=== PATIENT | male | born 1980 | race Caucasian/White ===

== ENCOUNTER 2022-10-28 09:44 | Outpatient (CLI) | payer BC, SELFPAY ==
[2022-10-28 13:42] LABS: Cholesterol* 219 mg/dL (90-199); HDL Cholesterol* 36 mg/dL (>=40); LDL Cholesterol Calculated 156 mg/dL (<100); Triglycerides* 137 mg/dL (40-149)
== END 2022-10-28 09:45 | disposition home or self-care (01) ==
PROVIDERS: PCP Family Medicine; Visit Provider Family Medicine
DX: E78.5 Hyperlipidemia, unspecified (principal)
CPT/HCPCS: 80061

== ENCOUNTER 2023-10-31 10:15 | Outpatient (RCR) | payer BC, SELFPAY | END 2024-02-19 13:25 | disposition home or self-care (01) | PROVIDERS: PCP Family Medicine; Visit Provider Orthopaedic Surgery | DX: M54.16 Radiculopathy, lumbar region (principal); Z51.89 Encounter for other specified aftercare | CPT/HCPCS: 97110; 97161; 97535 ==

== ENCOUNTER 2024-09-17 16:00 | Outpatient (CLI) | payer BC, SELFPAY | END 2024-09-17 16:01 | disposition home or self-care (01) | LOC: NFLDREF 09-22 00:15 | PROVIDERS: PCP Family Medicine; Referring Provider Family Medicine; Visit Provider Family Medicine | DX: E78.2 Mixed hyperlipidemia (principal) | CPT/HCPCS: 80048; 80061 ==

== ENCOUNTER 2025-03-03 09:48 | Outpatient (CLI) | payer BC, SELFPAY ==
--- NOTE | 2025-03-03 11:52 | P.ANES_ITS ---
Anesthesia Charges Start Date/Time Anesthesia Start Date: 03/03/25 Anesthesia Start Time: 11:22 Stop Date/Time Anesthesia Stop Date: 03/03/25 Anesthesia Stop Time: 11:44 Coding CPT Codes CPT Codes: ЮЛИЯ LWR INTST NDSC NOS - [id number] ([id number]) P2 - PATIENT W/MILD SYST DISEASE, QK - VOCATIONAL TRAINING INSTRUCTOR 2-4 CNCRNT ANES PROC, QX - SACK CLEANER SVC W/ MD MED DIRECTION
--- NOTE | 2025-03-03 11:52 | W.ANESCHARGE ---
Anesthesia Charges Start Date/Time Anesthesia Start Date: 03/03/25 Anesthesia Start Time: 11:22 Stop Date/Time Anesthesia Stop Date: 03/03/25 Anesthesia Stop Time: 11:44 Coding CPT Codes CPT Codes: ЮЛИЯ LWR INTST NDSC NOS - [id number] ([id number]) P2 - PATIENT W/MILD SYST DISEASE, QK - WEB MERCHANDISER 2-4 CNCRNT ANES PROC, QX - MEDICAL OFFICE ASSISTANT INSTRUCTOR SVC W/ MD MED DIRECTION
--- NOTE | 2025-03-03 12:49 | P.ANES_ITS ---
Anesthesia Charges Start Date/Time Anesthesia Start Date: 03/03/25 Anesthesia Start Time: 11:22 Stop Date/Time Anesthesia Stop Date: 03/03/25 Anesthesia Stop Time: 11:44 Coding CPT Codes CPT Codes: ЮЛИЯ LWR INTST NDSC NOS - [id number] ([id number]) P2 - PATIENT W/MILD SYST DISEASE, QK - REGIONAL SALES COORDINATOR 2-4 CNCRNT ANES PROC, QX - PUBLISHING MANAGER SVC W/ MD MED DIRECTION
--- NOTE | 2025-03-03 12:49 | W.ANESCHARGE ---
Anesthesia Charges Start Date/Time Anesthesia Start Date: 03/03/25 Anesthesia Start Time: 11:22 Stop Date/Time Anesthesia Stop Date: 03/03/25 Anesthesia Stop Time: 11:44 Coding CPT Codes CPT Codes: ЮЛИЯ LWR INTST NDSC NOS - [id number] ([id number]) P2 - PATIENT W/MILD SYST DISEASE, QK - LACE PAPER MACHINE OPERATOR 2-4 CNCRNT ANES PROC, QX - APPARATUS CLEANER SVC W/ MD MED DIRECTION
== END 2025-03-03 09:49 | disposition home or self-care (01) ==
PROVIDERS: PCP Family Medicine; Visit Provider Surgery
DX: Z12.11 Encounter for screening for malignant neoplasm of colon (principal); D12.2 Benign neoplasm of ascending colon
CPT/HCPCS: 00811; 00812; 45385; J2704